=== PATIENT | female | born 1960 | race Caucasian/White ===

== ENCOUNTER → 2024-06-11 18:48 | Outpatient (CLI) | payer OTHER, SELFPAY | PROVIDERS: Visit Provider Nurse Practitioner Family | DX: R30.0 Dysuria (principal) | CPT/HCPCS: 87077; 87086; 87186 ==

== ENCOUNTER → 2025-04-12 06:50 | Outpatient (CLI) | payer OTHER, SELFPAY ==
--- NOTE | 2025-04-12 06:51 | DI.CT.S_ITS ---
PROCEDURE: CT ANKLE LEFT WITHOUT INDICATIONS: HX TOTAL ANKLE REPLACMENT LEFT TECHNIQUE: Noncontrast 1-1.5 mm axial sections acquired from above the tibiotalar joint to the bottom of the calcaneus, with coronal and sagittal reformats. For radiation dose reduction, the following was used: automated exposure control, adjustment of mA and/or kV according to patient size. COMPARISON: None. FINDINGS: Image quality: Excellent. Bones: Postsurgical changes are seen from tibiotalar arthroplasty with hardware components in expected positions. There is associated streak artifact that obscures adjacent structures including the surrounding bone. Within these limits, no definite lucency is seen adjacent to the hardware to suggest loosening. A vertical lucency is noted in the posterior plantar aspect of the talus (for example image 175 of coronal series 6). The talar component appears to extend into the posterolateral subtalar joint space with remodeling of the adjacent calcaneus. Mild degenerative changes are seen at the subtalar joint. Mild remodeling of the distal medial fibula adjacent to the tibia. Small posterior and plantar calcaneal enthesophytes. Mild to moderate degenerative changes at the talonavicular and naviculocuneiform articulations and at the 2nd and 3rd tarsometatarsal joints. Degenerative changes are seen at the 1st metatarsophalangeal joint and scattered throughout the interphalangeal joints of the toes. Generalized osteopenia. Soft tissues: Suspected small tibiotalar effusion. The ligaments and tendons are not well evaluated with CT. Mild atrophy within the abductor osteoarthrosis minimi muscle is suspicious for chronic denervation changes/Mckay neuropathy. The visualized musculature is otherwise normal in bulk. IMPRESSION: 1. Postsurgical changes from tibiotalar arthroplasty. Talar component partially traverses the posterior subtalar facet with remodeling of the adjacent calcaneus. 2. Vertical lucency within the plantar aspect of the talus extending into the subtalar joint, which may be related to the prior surgery with incomplete osseous bridging versus secondary to a perihardware fracture. 3. [id number] scattered degenerative changes throughout the foot. 4. Calcaneal enthesopathy. 5. Mild fatty infiltration of the abductor digiti minimi muscle is suspicious for chronic denervation changes/Mckay neuropathy. Approved by: Chandler Malhotra M.D. on 04/12/2025 at 14:13
== END ==
LOC: CT 06:51
PROVIDERS: PCP Family Medicine; Referring Provider Orthopaedic Surgery; Visit Provider Orthopaedic Surgery
DX: M77.32 Calcaneal spur, left foot (principal); M62.572 Muscle wasting and atrophy, not elsewhere classified, left ankle and foot; Z96.662 Presence of left artificial ankle joint
CPT/HCPCS: 73700

== ENCOUNTER → 2025-05-16 14:50 | Outpatient (CLI) | payer OTHER, SELFPAY ==
--- NOTE | 2025-05-16 14:51 | DI.RAD.S_ITS ---
PROCEDURE: XR CHEST 2V INDICATIONS: Crackles and wheezing on exam rule out pneumonia TECHNIQUE: 2 views of the chest were acquired. COMPARISON: None. FINDINGS: [id number] bilateral diffuse peribronchial thickening and mild patchy lower lobe opacities, more than expected for expiratory result; bronchitis, viral infection, bronchopneumonia, asthma or other process should be considered. Follow-up suggested. Mild calcifications of the aortic arch. Degenerative changes of the thoracic spine and shoulders. Cardiopericardial silhouette and pulmonary vasculature within normal limits. No pneumothorax, no pleural effusion, no lobar consolidation. IMPRESSION: Peribronchial thickening and patchy opacities as discussed above. Follow-up suggested. If symptoms persist or worsen, CT chest could be performed. Dictated by: Reji Sam M.D. on 05/16/2025 at 16:18 Approved by: Reji Sam M.D. on 05/16/2025 at 16:20
== END ==
PROVIDERS: PCP Family Medicine; Referring Provider Chiropractor; Visit Provider Chiropractor
DX: J18.9 Pneumonia, unspecified organism (principal)
CPT/HCPCS: 71046

== ENCOUNTER → 2025-09-29 07:58 | Outpatient (CLI) | payer OTHER, SELFPAY ==
--- NOTE | 2025-09-29 07:59 | DI.CT.S_ITS ---
PROCEDURE: CT ANKLE LEFT WITHOUT INDICATIONS: Evaluate left subtalar, heel. Medial heel pain. Prior ankle surgery. TECHNIQUE: Noncontrast 1-1.5 mm axial sections acquired from above the tibiotalar joint to the bottom of the calcaneus, with coronal and sagittal reformats. COMPARISON: [facility], CT, CT ANKLE LEFT WITHOUT, 07/28/2025, 9:00. FINDINGS: Image quality: Excellent. Bones: Changes of total ankle arthroplasty. Changes of subtalar joint instrumented arthrodesis. The subtalar fixation screws are proud of the lateral calcaneal cortex, unchanged from prior. Diffuse osseous demineralization. Similar collapse and fragmentation of the talus with osseous resorption, greatest within the lateral talar body. Osseous fragments extend into the sinus tarsi. No new fracture of the midfoot or forefoot. Similar changes of likely cement augmentation within the calcaneal body. Soft tissues: Similar is subcutaneous fat edema along the lateral calcaneal body adjacent to the screws proud of the lateral cortex. Similar soft tissue edema along the anterolateral ankle, likely postsurgical sequela. No high-grade discontinuity of the Achilles tendon, medial flexor tendons, anterior extensor tendons, or peroneal tendons. The proximal peroneal tendons are obscured by beam hardening artifact and overlying soft tissue edema. There is moderate atrophy of the intrinsic foot musculature. Calcifications within the central band of the plantar fascia adjacent to a small plantar calcaneal spur are similar in appearance dating back to 04/12/2025 and may represent findings of plantar fasciitis. IMPRESSION: Changes of left total ankle arthroplasty with redemonstrated subtalar joint instrumented arthrodesis for the compression fracture of the talar body. Soft tissue calcifications within the proximal central band of the plantar fascia, correlate for symptoms of plantar fasciitis. The subtalar joint instrumentation remains proud of the lateral calcaneal body cortex, correlate with point tenderness for active symptomatology. Osseous fragments within sinus tarsi, this may correspond to findings sinus tarsi syndrome in the appropriate context. Dictated by: Suresh Jones M.D. on 09/29/2025 at 14:38 Approved by: Suresh Jones M.D. on 09/29/2025 at 14:48
== END ==
LOC: CT 07:59
PROVIDERS: PCP Family Medicine; Referring Provider Orthopaedic Surgery; Visit Provider Orthopaedic Surgery
DX: M19.072 Primary osteoarthritis, left ankle and foot (principal); Z98.1 Arthrodesis status
CPT/HCPCS: 73700